=== PATIENT | male | born 1990 | race Caucasian/White ===

== ENCOUNTER 2022-02-22 19:43 | Observation (INO) | payer SELFPAY ==
[2022-02-22 20:02] LABS: Urine Blood Negative (Negative); Urine Glucose 1+ (Negative); Urine Protein 2+ (Negative); Urine Specific Gravity >=1.030 (1.005-1.030)
[2022-02-22 20:14] LABS: Absolute Lymphocytes (CBC) 1.3 K/uL (0.7-4.9); Hematocrit 43.3 % (39.6-49.0); MCV 85.5 fL (80-100); MPV 7.7 fL (7.6-11.3); RBC Red Blood Cell Count 5.07 M/uL (4.33-5.43)
[2022-02-22 20:17] LABS: Protime INR 1.12
[2022-02-22 20:32] LABS: Barbiturates NEGATIVE (NEGATIVE); Benzodiazepines NEGATIVE (NEGATIVE); Cocaine POSITIVE (NEGATIVE); METHAMPHETAM POSITIVE (NEGATIVE); Methadone NEGATIVE (NEGATIVE); Opiates NEGATIVE (NEGATIVE); Phencyclidine NEGATIVE (NEGATIVE); THC Cannibis NEGATIVE (NEGATIVE)
[2022-02-22 20:33] LABS: ALT/SGPT 27 U/L (12-78); AST/SGOT 15 U/L (15-37); Albumin 4.5 g/dL (3.4-5.0); Alkaline Phosphatase 59 U/L (45-117); BUN Blood Urea Nitrogen 13 mg/dL (7-18); Bicarbonate 24 mmol/L (21-32); Bilirubin Direct 0.3 mg/dL (0-0.2); Bilirubin Total 1.2 mg/dL (0.2-1.0); Glomerular Filtration Rate 73 ml/min (=/>90); Glucose Level 293 mg/dL (74-106); Potassium 3.6 mmol/L (3.5-5.1); Protein, Total 8.4 g/dL (6.4-8.2); Sodium Level 136 mmol/L (136-145); Troponin High Sensitivity 9.1 pg/mL (<58.9)
--- NOTE | 2022-02-22 21:17 | RAD REPORT ---
EXAM DESCRIPTION: RAD - Chest Single View - 02/22/2022 8:43 pm CLINICAL HISTORY: CHEST PAIN COMPARISON: Two view chest 03/10/2011 TECHNIQUE: AP portable chest image was obtained 02/22/2022 8:43 pm . FINDINGS: Lung volumes are low. No acute lung parenchymal finding. No pulmonary edema identifiable. Heart and vasculature are normal. No measurable pleural effusion and no pneumothorax. No acute bony a bnormality seen. No acute aortic findings suspected. IMPRESSION: No acute cardiopulmonary process.
--- NOTE | 2022-02-22 23:59 | ER ---
Nurse's Notes [facility] Name: Inder Villatoro Age: 32 yrs Sex: Male : 1990 Arrival Date: 02/22/2022 Time: 19:45 Bed 26 Private MD: Diagnosis: Altered mental status, unspecified;Cardiopulmonary resuscitation;Substance Abuse Presentation: 02/22 20:02 Chief complaint: EMS states: Pt overdosed on something, dose not know what it is. Was jb4 given 2mg of narcan. Is now A\T\Ox1. Coronavirus screen: At this time, the client does not indicate any symptoms associated with coronavirus-19. Ebola Screen: No symptoms or risks identified at this time. Initial Sepsis Screen: Does the patient meet any 2 criteria? HR > 90 bpm. Yes Does the patient have a suspected source of infection? No. Patient's initial sepsis screen is negative. Risk Assessment: Do you want to hurt yourself or someone else?. Onset of symptoms was February 22, 2022. Transition of care: patient was not received from another setting of care. 20:02 Method Of Arrival: Ambulatory jb4 20:02 Acuity: FILOMENA 2 jb4 Historical: - Allergies: 20:09 unknown antibiotic; jb4 - Home Meds: 20:09 None [Active]; jb4 - PMHx: 20:09 None; jb4 - PSHx: 20:09 None; jb4 - Immunization history:: Adult Immunizations up to date. - Social history:: Smoking status: unknown. Screenin:10 Abuse screen: Denies threats or abuse. Nutritional screening: No deficits noted. jb4 Tuberculosis screening: No symptoms or risk factors identified. Fall Risk None identified. Assessment: 20:09 General: Appears distressed, uncomfortable, Behavior is calm, cooperative, appropriate jb4 for age. Pain: Denies pain. Neuro: Level of Consciousness is awake, obeys commands, lethargic, Oriented to person, place, time, situation. Cardiovascular: Skin is warm and diophoretic.. Respiratory: Airway is patent Respiratory effort is even, unlabored, Respiratory pattern is regular, symmetrical. Derm: Skin is intact, Skin is diaphoretic, Skin is normal, Skin temperature is warm. Musculoskeletal: Circulation, motion, and sensation intact. Range of motion: intact in all extremities. 21:05 Reassessment: Patient appears in no apparent distress at this time. Patient and/or jb4 family updated on plan of care and expected duration. Pain level reassessed. Pt is resting in bed with eyes closed, respirations are even and unlabored. 22:53 Reassessment: Patient and/or family updated on plan of care and expected duration. Pain jb4 level reassessed. Pt is resting in bed with eyes closed, respirations are even and unlabored with no s/s of pain or distress noted. 23:58 Reassessment: Patient appears in no apparent distress at this time. Patient and/or jb4 family updated on plan of care and expected duration. Pain level reassessed. Patient is alert, oriented x 3, equal unlabored respirations, skin warm/dry/pink. 02/23 01:14 Reassessment: Patient appears in no apparent distress at this time. Patient and/or jb4 family updated on plan of care and expected duration. Pain level reassessed. Patient is alert, oriented x 3, equal unlabored respirations, skin warm/dry/pink. 02:23 Reassessment: Patient appears in no apparent distress at this time. Patient and/or jb4 family updated on plan of care and expected duration. Pain level reassessed. Patient is alert, oriented x 3, equal unlabored respirations, skin warm/dry/pink. Vital Signs: 02/22 20:02 BP 114 / 77; Pulse 107; Resp 16; Temp 98.4(O); Pulse Ox 96% on R/A; jb4 21:05 BP 124 / 77; Pulse 86; Resp 18; Pulse Ox 97% on R/A; jb4 22:53 BP 129 / 89; Pulse 84; Resp 16; Pulse Ox 98% on R/A; jb4 23:58 BP 134 / 90; Pulse 71; Resp 16; Pulse Ox 95% on R/A; jb4 02/23 02:15 BP 111 / 83; Pulse 78; Resp 15; Pulse Ox 98% on R/A; jb4 03:40 BP 162 / 96; Pulse 98; Resp 18; Pulse Ox 100% ; kd3 ED Course: 02/22 19:45 Patient arrived in ED. mw2 19:48 Dionisio Virgen PA is PHCP. cp 19:48 Melquiades Nickerson MD is Attending Physician. cp 19:50 Champ Walsh, RN is Primary Nurse. jb4 20:02 Inserted saline lock: 22 gauge in left wrist, using aseptic technique. Blood collected. tp1 Maintain EMS IV. Dressing intact. Site clean \T\ dry. Gauge \T\ site: 20 gauge in the right forearm . 20:03 Patient has correct armband on for positive identification. Placed in gown. Bed in low tp1 position. Call light in reach. Side rails up X2. 20:04 Triage completed. jb4 20:09 Arm band placed on right wrist. jb4 20:45 XRAY Chest (1 view) In Process Unspecified. EDMS 02/23 01:02 Joe Contreras MD is Hospitalizing Provider. kdr 02:24 No provider procedures requiring assistance completed. Patient admitted, IV remains in jb4 place. 08:16 Rogers Burns is Hospitalizing Provider. rn Administered Medications: 02/22 20:02 Drug: NS 0.9% 1000 ml Route: IV; Rate: 500 ml/hr; Site: right antecubital; jb4 02/23 03:40 Follow up: Response: No adverse reaction; IV Status: Completed infusion kd3 Medication: 02:24 VIS not applicable for this client. jb4 Outcome: 02/22 23:58 Discharge ordered by . cp 02/23 01:04 Decision to Hospitalize by Provider. kdr 02:24 Admitted to ER Hold. Please see [facility] for further documentation. jb4 02:24 Condition: stable 02:24 Discharge instructions given to patient, Instructed on the need for admit, Demonstrated understanding of instructions. 10:21 Patient left the ED. ss Signatures: Dispatcher [employer] EDPA Melquiades Nickerson MD MD [facility] Orlando Contreras MD MD rn Smirch, Shelby, RN RN ss Dionisio Virgen PA PA cp Champ Walsh, RN RN jb4 Tere Granados 2 Brianna Dominguez RN RN kd3 Gayla Diaz tp1
--- NOTE | 2022-02-22 23:59 | EDPHYS ---
Physician Documentation [facility] Name: Inder Villatoro Age: 32 yrs Sex: Male : 1990 Arrival Date: 02/22/2022 Time: 19:45 Bed 26 Private MD: ED Physician Melquiades Nickerson HPI: 02/22 20:00 This 32 yrs old Male presents to ER via Ambulatory with complaints of Overdose. cp 20:00 The patient presents to the emergency department after a known overdose, a result of recreational substance abuse. Context: Method: the patient has a confirmed or suspected ingestion, unknown street drug. 20:00 Patient admits to taking "street drug". Thought he was taking hydrocodone. EMS reports cp patient was found on ground outside unresponsive. Bystanders started cpr. Historical: - Allergies: 20:09 unknown antibiotic; jb4 - Home Meds: 20:09 None [Active]; jb4 - PMHx: 20:09 None; jb4 - PSHx: 20:09 None; jb4 - Immunization history:: Adult Immunizations up to date. - Social history:: Smoking status: unknown. ROS: 20:05 Constitutional: Negative for body aches, chills, fever, poor PO intake. cp 20:05 Eyes: Negative for injury, pain, redness, and discharge. cp 20:05 Cardiovascular: Negative for chest pain. 20:05 Respiratory: Negative for cough, shortness of breath, wheezing. 20:05 Neuro: Positive for altered mental status. 20:05 Abdomen/GI: Negative for abdominal pain, vomiting, diarrhea, constipation. cp 20:05 Back: Negative for pain at rest, pain with movement. cp 20:05 All other systems are negative. Exam: 20:10 Constitutional: The patient appears non-toxic, well developed, well nourished, cp diaphoretic. 20:10 Head/Face: Normocephalic, atraumatic. cp 20:10 Eyes: Periorbital structures: appear normal, Pupils: pinpoint, bilaterally, Conjunctiva: normal, no exudate, no injection, Sclera: no appreciated abnormality, Lids and lashes: appear normal, bilaterally. 20:10 ENT: External ear(s): are unremarkable, Nose: is normal, Mouth: Lips: moist, Oral mucosa: pink and intact, moist, Posterior pharynx: Airway: no evidence of obstruction, patent. 20:10 Neck: ROM/movement: is normal, is supple, without pain, no range of motions limitations. 20:10 Chest/axilla: Inspection: normal, Palpation: is normal, no crepitus, no tenderness. cp 20:10 Cardiovascular: Rate: tachycardic, Rhythm: regular, Edema: is not appreciated, JVD: is not appreciated. 20:10 Respiratory: the patient does not display signs of respiratory distress, Respirations: normal, no use of accessory muscles, no retractions, labored breathing, is not present, Breath sounds: are clear throughout, no decreased breath sounds, no stridor, no wheezing. 20:10 Abdomen/GI: Inspection: abdomen appears normal, Bowel sounds: active, all quadrants, Palpation: soft, in all quadrants, mild abdominal tenderness, in the left upper quadrant and left lower quadrant, rebound tenderness, is not appreciated, involuntary guarding, is not appreciated. 20:10 Back: pain, is absent, ROM is normal. 20:10 Neuro: Orientation: to person, situation, Mentation: able to follow commands, slow to cp respond, Motor: moves all fours, strength is normal. 20:17 ECG was reviewed by the Attending Physician. cp Vital Signs: 20:02 BP 114 / 77; Pulse 107; Resp 16; Temp 98.4(O); Pulse Ox 96% on R/A; jb4 21:05 BP 124 / 77; Pulse 86; Resp 18; Pulse Ox 97% on R/A; jb4 22:53 BP 129 / 89; Pulse 84; Resp 16; Pulse Ox 98% on R/A; jb4 23:58 BP 134 / 90; Pulse 71; Resp 16; Pulse Ox 95% on R/A; jb4 02/23 02:15 BP 111 / 83; Pulse 78; Resp 15; Pulse Ox 98% on R/A; jb4 03:40 BP 162 / 96; Pulse 98; Resp 18; Pulse Ox 100% ; kd3 MDM: 02/22 19:50 Patient medically screened. cp 20:00 Differential diagnosis: polypharmacy, over medication, hypoglycemia, closed head cp injury, intracranial hemorrhage. 02/23 01:04 Data reviewed: vital signs, nurses notes, lab test result(s), EKG, radiologic studies. kdr Counseling: I had a detailed discussion with the patient and/or guardian regarding: the historical points, exam findings, and any diagnostic results supporting the discharge/admit diagnosis, lab results, radiology results, the need for outpatient follow up. 02/22 19:49 Order name: Acetaminophen; Complete Time: 22:35 cp 02/22 22:15 Interpretation: Reviewed. 02/22 19:49 Order name: Basic Metabolic Panel; Complete Time: 22:35 cp 02/22 21:47 Interpretation: Normal except: GLUC 293; CRE 1.33; GFR 73. cp 02/22 19:49 Order name: CBC with Diff; Complete Time: 21:08 cp 02/22 21:47 Interpretation: Normal except: WBC 11.4; PAULINE% 81.7; LYM% 11.0; NEUT A 9.3. cp 02/22 19:49 Order name: ETOH Level; Complete Time: 21:08 cp 02/22 22:15 Interpretation: Reviewed. 02/22 19:49 Order name: Hepatic Function; Complete Time: 22:35 cp 02/22 21:47 Interpretation: Normal except: BILIT 1.2; BILID 0.3; TP 8.4; GLOB 3.9. cp 02/22 19:49 Order name: PT-INR; Complete Time: 21:08 cp 02/22 19:49 Order name: Ptt, Activated; Complete Time: 21:08 02/22 19:49 Order name: Salicylate; Complete Time: 21:08 cp 02/22 22:35 Interpretation: Reviewed. 02/22 19:49 Order name: Urine Drug Screen; Complete Time: 21:08 cp 02/22 21:48 Interpretation: Normal except: LUCAS POSITIVE; METHAMPHETAMINE POSITIVE. 02/22 19:49 Order name: Troponin HS; Complete Time: 22:35 cp 02/22 22:15 Interpretation: Reviewed. 02/22 20:02 Order name: Urine Dipstick-Ancillary; Complete Time: 21:08 EDMS 02/22 22:35 Interpretation: Normal except: UGLUC 1+; UPROT 2+. cp 02/22 23:56 Order name: Troponin HS; Complete Time: 00:58 cp 02/23 01:12 Order name: COVID-19 SARS RT PCR (Document "Date of Onset" if Symptomatic); Complete kb Time: 04:44 02/23 03:51 Order name: Urinalysis; Complete Time: 04:44 EDMS 02/22 19:49 Order name: EKG; Complete Time: 19:50 02/22 19:49 Order name: EKG - Nurse/Tech; Complete Time: 20:47 02/22 19:49 Order name: IV Saline Lock; Complete Time: 19:51 02/22 19:49 Order name: Labs collected and sent; Complete Time: 20:02 02/22 19:49 Order name: Suicide Screening ([place]); Complete Time: 20:46 02/22 19:49 Order name: Urine Dipstick-Ancillary (obtain specimen); Complete Time: 20:47 02/22 19:49 Order name: XRAY Chest (1 view); Complete Time: 21:46 02/22 21:47 Interpretation: Report review. 02/23 04:19 Order name: Urine Microscopic Only; Complete Time: 04:44 EDMS 02/23 08:50 Order name: Troponin High Sensitivity; Complete Time: 00:34 EDMS 02/23 08:50 Order name: Lipid Profile; Complete Time: 00:34 EDMS 02/23 08:50 Order name: Thyroid Stimulating Hormone; Complete Time: 00:34 EDMS EC/27 20:17 Rate is 116 beats/min. Rhythm is regular. RI interval is normal. QRS interval is cp normal. QT interval is normal. T waves are Inverted in lead aVR. Interpreted by me. Reviewed by me. Administered Medications: 20:02 Drug: NS 0.9% 1000 ml Route: IV; Rate: 500 ml/hr; Site: right antecubital; jb4 02/23 03:40 Follow up: Response: No adverse reaction; IV Status: Completed infusion kd3 Disposition: 01:01 Co-signature as Attending Physician, Melquiades Nickerson MD I agree with the assessment and kdr plan of care. Disposition Summary: 02/23/22 01:04 Hospitalization Ordered Hospitalization Status: Observation kdr Condition: Fair(02/23/22 01:04) kdr Problem: new(02/23/22 01:04) kdr Symptoms: have improved(02/23/22 01:04) kdr Bed/Room Type: Standard kdr Location: [facility] ER HOLD(02/23/22 02:23) Room Assignment: ERHOLD-(02/23/22 02:23) cg Provider: Rogers Burns(02/23/22 08:16) rn Diagnosis - Altered mental status, unspecified kdr - Cardiopulmonary resuscitation kdr - Substance Abuse kdr Discharge Instructions: - Discharge Summary Sheet ss Forms: - Medication Reconciliation Form kdr - SBAR form kdr - Work release form ss Signatures: Dispatcher [employer] EDMS Melquiades Nickerson MD MD kdr Nieto, Roman, MD MD rn Page, Corey, PA PA Yvonne Bansal RN RN Champ Sullivan RN RN Kiesha Crump PA PA sb3 Brianna Dominguez RN kd3 Corrections: (The following items were deleted from the chart) 01:02 02/22 23:58 Home cp kdr 02/23 01:02 02/22 23:58 new cp kdr 02/23 01:02 02/22 23:58 have improved cp kdr 02/23 01:02 02/22 23:58 Stable cp kdr 02/23 01:02 02/22 23:58 Adverse effect of cocaine, initial encounter cp kdr 02/23 01:02 02/22 23:58 Adverse effect of amphetamines, initial encounter cp kdr 02/23 02:23 01:04 Telemetry/MedSurg (Inpatient) kdr cg 02:23 01:04 kdr cg 08:16 01:04 Joe Contreras kdr rn
[2022-02-23] MEDS ORDERED: CALCIUM CARBONATE CHEW 500MG TAB PO PRN (01:29)
--- NOTE | 2022-02-23 01:32 | P.HP ---
Certification for Inpatient Patient admitted to: Observation With expected LOS: <2 Midnights Patient will require the following post-hospital care: None Practitioner: I am a practitioner with admitting privileges, knowledge of patient current condition, hospital course, and medical plan of care. Services: Services provided to patient in accordance with Admission requirements found in Title 42 Section 412.3 of the Code of Federal Regulations Patient History Date of Service: 02/23/22 Reason for admission: Chest Pain History of Present Illness: Patient is a 32-year-old male who presented to the ED via EMS after he was found down. Per EMS, a bystander found him unresponsive and initiated CPR. EMS administered Narcan and he became more alert. Patient reports that he took 3 unknown pills this morning and used cocaine 2 days ago. Tox screen positive for methamphetamines and cocaine. Labs positive for glucose 293, creatinine 1.3, WBC 11, troponin 85.6. EKG showed inverted T waves in aVR but otherwise unremarkable. He was given 1 L fluid in ED. Upon my assessment, patient states he remembers taking pills this morning then feeling very tired and weak. He thought he took fentanyl. He is reporting some chest pain that is described as tightness and like he cannot take a deep breath. He states that it does not radiate and is not associated with any other symptoms. Patient is admitted for observation. Allergies unknown antibiotic Allergy (Uncoded 11/09/15 04:09) Unknown Home medications list reviewed: Yes (NA) - Past Medical/Surgical History Diabetic: No Past Medical History: Patient denies medical history Past Surgical History: Patient denies surgical history Psychosocial/ Personal History: Patient lives at home with his family. - Family History Family History: Reviewed- Non-Contributory - Social History Smoking Status: Current every day smoker Alcohol use: Yes CD- Drugs: Yes Caffeine use: Yes Place of Residence: Home Review of Systems Cardiovascular: Chest Pain Gastrointestinal: Nausea, Vomiting Physical Examination - Physical Exam General: Alert, In no apparent distress HEENT: Atraumatic, PERRLA, EOMI, Sclerae nonicteric Neck: Supple, 2+ carotid pulse no bruit, No LAD, Without JVD or thyroid abn ormality Respiratory: Clear to auscultation bilaterally, Normal air movement Cardiovascular: Regular rate/rhythm, Normal S1 S2 Gastrointestinal: Normal bowel sounds, No tenderness Musculoskeletal: No tenderness Integumentary: No rashes Neurological: Normal speech, Normal strength at 5/5 x4 extr, Normal tone, Normal affect - Studies Laboratory Data (last 24 hrs) 02/22/22 20:00: PT 12.4, INR 1.12, APTT 30.2 02/22/22 20:00: WBC 11.4 H, Hgb 14.8, Hct 43.3, Plt Count 290 02/22/22 20:00: Sodium 136, Potassium 3.6, BUN 13, Creatinine 1.33 H, Glucose 293 H, Total Bilirubin 1.2 H, AST 15, ALT 27, Alkaline Phosphatase 59 Assessment and Plan - Problems (Diagnosis) (1) Chest pain Current Visit: Yes Status: Acute Qualifiers: Chest pain type: unspecified Qualified Code(s): R07.9 - Chest pain, unsp ecified (2) Cocaine abuse Current Visit: Yes Status: Acute (3) Methamphetamine abuse Current Visit: Yes Status: Acute - Plan -Initial troponin HS negative. Repeat 85.6. Will check again in 6 hours. Could be secondary to cocaine use. Cardiology consulted. -Aspirin 324 x 1 -Lipid panel and TSH ordered -Continue IVF -Lovenox for VTE ppx -Full code Discharge Plan: Home Plan to discharge in: 24 Hours - Advance Directives Does patient have a Living Will: No Does patient have a Durable POA for Healthcare: No - Code Status/Comfort Care Code Status Assessed: Yes (Full) Critical Care: No Time Spent Managing Pts Care (In Minutes): 50
[2022-02-23] MEDS ORDERED: ASPIRIN 81 MG CHEWABLE TABLET PO ONE (01:54)
[2022-02-23] MEDS ORDERED: ACETAMINOPHEN 500 MG TAB PO PRN (01:54)
[2022-02-23] MEDS ORDERED: ONDANSETRON 4 MG/2 ML VIAL IV PRN (01:54)
[2022-02-23] MEDS ORDERED: NA CHLORIDE 0.9% 1,000 ML IV SCH (02:00)
[2022-02-23] MEDS ORDERED: CALCIUM CARBONATE CHEW 500MG TAB ONE (02:06)
[2022-02-23] MEDS ORDERED: ONDANSETRON 4 MG/2 ML VIAL ONE (02:37)
[2022-02-23] MEDS ORDERED: ASPIRIN 81 MG CHEWABLE TABLET ONE (02:44)
[2022-02-23] MEDS ORDERED: NA CHLORIDE 0.9% 1,000 ML ONE (02:44)
[2022-02-23 03:02] VITALS: BMI 32.8
[2022-02-23 03:51] LABS: Urine Appearance TURBID (Clear); Urine Bilirubin Negative (Negative); Urine Blood Trace-intact (Negative); Urine Color Yellow (Yellow); Urine Glucose 2+ (Negative); Urine Protein 2+ (Negative); Urine Specific Gravity >=1.030 (1.005-1.030); Urine Urobilinogen 0.2 mg/dL (0.2-1.0); Urine pH 5.5 (5.0-7.0)
[2022-02-23 03:55] LABS: Urine Microscopic Reflex ORDER UMIC
[2022-02-23 04:17] LABS: Urine Mucus 2+ /HPF (NONE SEEN)
[2022-02-23 04:18] LABS: Urine Amorphous Sediment 2+ /HPF (NONE SEEN); Urine Bacteria <20 /HPF (NONE SEEN); Urine RBC <5 /HPF (NONE SEEN); Urine Sperm PRESENT (NONE SEEN); Urine Urothelial Cells <5 /HPF (NONE SEEN)
[2022-02-23 08:50] LABS: Thyroid Stimulating Hormone 3.27 uIU/mL (0.360-3.740)
--- NOTE | 2022-02-23 08:53 | EKG ---
Test Date: 2022-02-22 Test Time: 20:11:39 Light Rail Operator: TP MEASUREMENT RESULTS: Intervals: Rate: 116 FL: 136 QRSD: 94 QT: 334 QTc: 464 [place]: P: 45 FL: 136 QRS: 58 T: 40 INTERPRETIVE STATEMENTS: Sinus tachycardia Nonspecific T wave abnormality Abnormal ECG Compared to ECG 03/21/2014 01:28:08 T-wave abnormality now present Sinus rhythm no longer present Electronically Signed On 02-23-22 08:52:13 CDT by Marcus Hdez
--- NOTE | 2022-02-23 08:53 | EKG ---
Test Date: 2022-02-23 Test Time: 02:11:00 [employer] Artistic Director: DANIEL MEASUREMENT RESULTS: Intervals: Rate: 116 VA: 136 QRSD: 92 QT: 336 QTc: 467 [place]: P: 58 VA: 136 QRS: 61 T: 43 INTERPRETIVE STATEMENTS: Sinus tachycardia Otherwise normal ECG Compared to ECG 02/22/2022 20:11:39 T-wave abnormality no longer present Electronically Signed On 02-23-22 08:51:57 CDT by Marcus Hdez
[2022-02-23] MEDS ORDERED: ENOXAPARIN 40 MG/0.4 ML SQ SCH (09:00)
[2022-02-23 09:31] VITALS: BP 152/86
[2022-02-23 10:42] VITALS: TEMP 98.4
[2022-02-23 10:49] VITALS: O2SAT 100
--- NOTE | 2022-02-23 11:02 | CON ---
Date of Consultation: 02/23/2022 Reason For Consultation: Atypical chest pain, positive troponin, cocaine abuse and amphetamine abuse . History Of Present Illness: Mr. Villatoro is 32. No previous cardiac history. No family history of heart disease. Came in with drug abuse with positive cocaine and amphetamine on his drug screen. Tr oponin is 85. Glucose is 293. White count is 11,000. Creatinine is 1.33. Had atypical chest pain, sharp, stabbing on the left side, pleuritic type. No nausea, vomiting, diaphoresis, PND, orthopnea, pedal edema, palpitations, or syncope. Past Medical History: Negative. Allergies: HE IS ALLERGIC TO ANTIBIOTIC, SOUNDS LIKE IS VANCOMYCIN. Medications: At home none. Review of Systems: Negative. Social History: Positive for drug use. Family History: Noncontributory. Physical Examination: Normal by Dr. Contreras. Diagnostic Data: As stated earlier. Impression And Plan: Elevated troponin secondary to drug use. No need for cardiac workup. The dmitry ent is 32. No cardiac risk factors and I asked him to follow up in the office, have an ec hocardiogram and outpatient stress test. The patient does not want to have much cardiac workup in health system because of fall and I will relay that to his admitting physician. I am comfortable with him going home. ALTAGRACIA Voice ID: [id number] Report ID: [id number]
--- NOTE | 2022-02-23 19:26 | P.DS ---
Admission Date: 02/23/22 Discharge Date: 02/23/22 Disposition: AMA-LEFT AGAINST MEDICAL ADVIC Discharge Condition: FAIR Reason for Admission: Chest Pain - Problems (1) Chest pain Status: Acute Qualifiers: Chest pain type: unspecified Qualified Code(s): R07.9 - Chest pain, unspecified (2) Cocaine abuse Status: Acute (3) Methamphetamine abuse Status: Acute (4) Elevated troponin Status: Acute Brief History of Present Illness: Patient is a 32-year-old male who presented to the ED via EMS after he was found down. Per EMS, a bystander found him unresponsive and initiated CPR. EMS administered Narcan and he became more alert. Patient reports that he took 3 unknown pills today and used cocaine 2 days ago. Tox screen positive for methamphetamines and cocaine. Labs positive for glucose 293, creatinine 1.3, WBC 11, troponin 85.6. EKG showed inverted T waves in aVR but otherwise unremarkable. He was given 1 L fluid in ED. He thought he took fentanyl. He reported chest pain described as tightness and that he cannot take a deep breath. He is under observation for ACS rule out. Hospital Course: He was placed on observation on medical floor. Troponin trended slightly up. Patient seen by cardiology who recommended echocardiogram. According to nursing staff, patient refused echocardiogram and requested to be discharged. Nurse informed me that patient wants to go home. I told the nurse to have him wait for me to see him. I went to see patient in the ER holding room but the room was empty. I was told patient left AGAINST MEDICAL ADVICE and would not wait for me. Vital Signs/Physical Exam: Temp Pulse Resp BP Pulse Ox 98.4 F 103 H 15 152/86 H 97 02/22/22 20:02 02/23/22 08:00 02/23/22 08:00 02/23/22 08:00 02/23/22 08:00 Laboratory Data at Discharge: WBC 11.4 K/uL (4.3-10.9) H 02/22/22 20:00 Hgb 14.8 g/dL (13.6-17.9) 02/22/22 20:00 Hct 43.3 % (39.6-49.0) 02/22/22 20:00 Plt Count 290 K/uL (152-406) 02/22/22 20:00 PT 12.4 SECONDS (9.5-12.5) 02/22/22 20:00 INR 1.12 02/22/22 20:00 APTT 30.2 SECONDS (24.3-36.9) 02/22/22 20:00 Sodium 136 mmol/L (136-145) 02/22/22 20:00 Potassium 3.6 mmol/L (3.5-5.1) 02/22/22 20:00 BUN 13 mg/dL (7-18) 02/22/22 20:00 Creatinine 1.33 mg/dL (0.55-1.3) H 02/22/22 20:00 Glucose 293 mg/dL (74-106) H 02/22/22 20:00 Total Bilirubin 1.2 mg/dL (0.2-1.0) H 02/22/22 20:00 AST 15 U/L (15-37) 02/22/22 20:00 ALT 27 U/L (12-78) 02/22/22 20:00 Alkaline Phosphatase 59 U/L (45-117) 02/22/22 20:00 Triglycerides 22 mg/dL (<150) 02/23/22 07:41 Cholesterol 144 mg/dL (<200) 02/23/22 07:41 HDL Cholesterol 81 mg/dL (40-60) H 02/23/22 07:41 Cholesterol/HDL Ratio 1.78 02/23/22 07:41 Home Medications: NK [No Home Meds] 02/23/22 Followup: Unknown,U [Primary Care Provider] -
== END 2022-02-23 10:21 | disposition left against medical advice (07) ==
LOC: ER 19:43 → ERHOLD 02-23 01:25
PROVIDERS: ADMIT Hospitalist; ATTEND Internal Medicine
DX: R07.89 Other chest pain (principal); Z53.21 Procedure and treatment not carried out due to patient leaving prior to being seen by health care provider; F15.10 Other stimulant abuse, uncomplicated; F14.10 Cocaine abuse, uncomplicated; R77.8 Other specified abnormalities of plasma proteins; F17.200 Nicotine dependence, unspecified, uncomplicated; Z88.1 Allergy status to other antibiotic agents; Z20.822 Contact with and (suspected) exposure to COVID-19
CPT/HCPCS: 36415; 71045; 80048; 80061; 80076; 80307; 80320; 80329; 81003; 81015; 84443; 84484; 85025; 85610; 85730; 93005; 96360; 96361; 99285; G0378; J2405; J7030; U0003